=== PATIENT | female | born 1995 | race African-American/Black ===

== ENCOUNTER 2023-05-18 01:15 | Inpatient (IN) | payer OTHER ==
[2023-05-18] MEDS ORDERED: OXYTOCIN IV SCH ×2 (01:55→03:15)
[2023-05-18] MEDS ORDERED: NS IV SCH ×2 (01:55→03:15)
[2023-05-18 02:17] LABS: BASO % 0.2 % (0-2.0); EOS % 0.4 % (0-4.5); HEMATOCRIT 38.8 % (32.4-45.2); HEMOGLOBIN 12.6 GM/dL (10.7-15.3); LYMPH % 12.6 % (8-40); MCHC 32.4 g/dl (32.0-36.0); MEAN CELL VOLUME 83.5 fl (80-96); MEAN PLT VOLUME 10.7 fl (7.5-11.1); NEUT % 81.8 % (42.8-82.8); PLATELET COUNT 155 10^3/uL (134-434); RBC 4.65 M/mm3 (3.60-5.2); RDW 15.1 % (11.6-15.6); WHITE BLOOD COUNT 9.3 K/mm3 (4.0-10.0)
[2023-05-18] MEDS ORDERED: ACETAMINOPHEN 325 MG TABLET (FP) PO PRN (02:18)
[2023-05-18] MEDS ORDERED: BENZOCAINE 20% 57 GM BOTTLE TP PRN (02:18)
[2023-05-18] MEDS ORDERED: oxyCODONE HCL 5 MG TABLET PO PRN (02:18)
[2023-05-18] MEDS ORDERED: BENZOCAINE 28 GM HEMORRHOIDAL OINTMENT TP PRN (02:18)
[2023-05-18] MEDS ORDERED: BISACODYL 10 MG SUPP.RECT RC PRN (02:18)
[2023-05-18] MEDS ORDERED: IBUPROFEN 600 MG TABLET (FP) PO PRN (02:18)
[2023-05-18] MEDS ORDERED: METHYLERGONOVINE MALEATE 0.2 MG/1 ML AMP IM PRN (02:18)
[2023-05-18] MEDS ORDERED: WITCH HAZEL 50% (TUCKS) 40 PAD/JAR PAD TP PRN (02:18)
[2023-05-18 02:24] LABS: INR 0.9 (0.83-1.09); PROTHROMBIN TIME (PATIENT) 10.4 SEC (9.7-13.0)
[2023-05-18 02:26] LABS: ACTIVATED PTT 28.7 SECONDS (25.2-36.5)
[2023-05-18 02:31] VITALS: BMI 23.3
[2023-05-18 02:36] LABS: POTASSIUM 3.9 mmol/L (3.5-5.1)
[2023-05-18 02:38] LABS: CALCIUM 9.1 mg/dL (8.5-10.1)
[2023-05-18 02:39] LABS: ALBUMIN 2.7 g/dl (3.4-5.0); BLOOD UREA NITROGEN 6.5 mg/dL (7-18)
[2023-05-18 02:42] LABS: CREATININE 0.7 mg/dL (0.55-1.3)
[2023-05-18 02:43] LABS: BILIRUBIN,TOTAL 0.4 mg/dL (0.2-1); TOT PROT 6.6 g/dl (6.4-8.2)
[2023-05-18 03:56] LABS: PHENCYCLIDINE,URINE NEGATIVE (NEGATIVE)
[2023-05-18 03:57] LABS: COCAINE, UR NEGATIVE (NEGATIVE); METHADONE, UR NEGATIVE (NEGATIVE); OPIATES, URI NEGATIVE (NEGATIVE); URINE AMPHETAMINES NEGATIVE (NEGATIVE); URINE BARBITURATES NEGATIVE (NEGATIVE); URINE BENZODIAZEPINES NEGATIVE (NEGATIVE)
[2023-05-18] MEDS: PRENATAL VITAMINS W/ FOLIC ACID TABLET (FP) PO SCH (09:07)
[2023-05-18] MEDS: FERROUS SO4 325 MG TABLET (FP) PO SCH ×3 (09:07→17:08)
[2023-05-18 15:31] LABS: SYPHILIS W/ RPR CONF NON-REACTIVE (NONREACTIVE)
[2023-05-18 15:59] LABS: HIV INTERPRETATION NEGATIVE (NEGATIVE)
[2023-05-18 23:36] VITALS: RESP 18
[2023-05-19 06:42] LABS: BASO % 0.3 % (0-2.0); EOS % 0.5 % (0-4.5); HEMATOCRIT 33.8 % (32.4-45.2); HEMOGLOBIN 10.9 GM/dL (10.7-15.3); LYMPH % 21.8 % (8-40); MCH 26.9 pg (25.7-33.7); MCHC 32.3 g/dl (32.0-36.0); MEAN CELL VOLUME 83.4 fl (80-96); MONO % 7.6 % (3.8-10.2); NEUT % 69.8 % (42.8-82.8); PLATELET COUNT 169 10^3/uL (134-434); RBC 4.05 M/mm3 (3.60-5.2); RDW 14.7 % (11.6-15.6); WHITE BLOOD COUNT 9.3 K/mm3 (4.0-10.0)
[2023-05-19 08:53] VITALS: BP 109/67; PULSE 78; TEMP 97.5
[2023-05-19] MEDS: PRENATAL VITAMINS W/ FOLIC ACID TABLET (FP) PO SCH (09:58)
[2023-05-19] MEDS: FERROUS SO4 325 MG TABLET (FP) PO SCH ×2 (09:58→13:25)
[2023-05-19] MEDS ORDERED: SENNOSIDES/DOCUSATE COMBO (SENNA PLUS) TABLET (UD) PO PRN (22:00)
== END 2023-05-19 16:37 | disposition home or self-care (01) | DRG 560 ==
LOC: JLDR 01:15 → J3W 03:38
PROVIDERS: ADMIT Obstetrics & Gynecology; ATTEND Obstetrics & Gynecology
PROC: 10E0XZZ Delivery of Products of Conception, External Approach (ICD-10-PCS; principal; 2023-05-18)
DX: O72.2 Delayed and secondary postpartum hemorrhage (principal); Z37.0 Single live birth; Z3A.39 39 weeks gestation of pregnancy
CPT/HCPCS: 36415; 80053; 80307; 85025; 85610; 85730; 86780; 86850; 86900; 86901; 87340; 87389